=== PATIENT | male | born 1970 ===

== ENCOUNTER 2017-05-21 13:04 | Day surgery (SDC) | payer BC ==
--- NOTE | 2017-05-09 08:52 | HP ---
AMENDED REPORT NOW INCLUDES COSIGNER DESIGNATION - ESIGNED BEFORE ADJUSTMENT ADMISSION HISTORY AND PHYSICAL: DATE OF SURGERY/ADMISSION: 05/21/17 ATTENDING PHYSICIAN: Franco Rubio MD * (DICTATED BY JORGE SEPULVEDA ) CHIEF COMPLAINT: Symptomatic cholelithiasis. HISTORY OF PRESENT ILLNESS: Mr. Rocha is an pleasant 47-year-old gentleman who is well known to our practice from prior gastric bypass surgery back in 2008. The patient has done extremely well since his bariatric surgery and lost almost 100 pounds up-to-date. He has been staying active and eating healthy overall. He was seen by his primary care physician earlier this year and was found on a routine blood work to have elevated liver enzymes. The patient himself denies any symptoms related to gallbladder disease. He denied any abdominal pain, nausea, vomiting, changes in the bowel habits or in the color of stool or urine. The patient subsequently was sent for a right upper quadrant ultrasound that revealed evidence of cholelithiasis for which he was referred back to Dr. Rubio to discuss gallbladder surgery. Given the fact that the patient had a Jillian-en-Y gastric bypass 8 years ago and with new findings of cholelithiasis, he was concerned about having any issues with gallstone pancreatitis or any future problems with gallstones given his recent bariatric surgery for which he was found to be a good candidate for gallbladder surgery. The patient was seen by Dr. Rubio earlier this month to discuss surgery. At his office visit today, he continued to do well and denies any significant abdominal pain, nausea, vomiting or any other associated symptoms since his last office visit. He has maintained his weight loss with an average weight this time of 235 pounds and he has been maintaining a low carb, high protein diet as well. PAST MEDICAL HISTORY: Significant for sleep apnea for which the patient had used CPAP in the past, but has not been using it since he lost his weight. He also had history of anxiety, depression, thyroid disease, low testosterone and remote history of substance abuse. PAST SURGICAL HISTORY: Significant for adenoid removal back in 1977 due to polyps but tonsils are still intact. He also has a history of laparoscopic Jillian -en-Y gastric bypass back in June [address] Rubio. CURRENT MEDICATIONS: His medications at home include: 1. Calcarb 600/D mg/units 1 tablet daily. 2. Cyanocobalamin 1000 mcg 1 capsule daily by mouth. 3. Multivitamin 1 tablet daily. 4. Paxil 10 mg once a day. 5. Testosterone 200 mg/mL once daily. 6. Vitamin D3 one by mouth as needed. ALLERGIES: He has no known drug allergies. FAMILY HISTORY: Significant for heart disease and hypertension, but denies any family history of gallbladder disease or colorectal malignancies. 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 He is a nonsmoker who denies alcohol intake. REVIEW OF SYSTEMS: See HPI, otherwise negative. He denies any headache, dizziness, night sweats, or recent weight loss. No chest pain, cough, shortness of breath, sore throat, or palpitation. No fever, chills, nausea, vomiting, or recent changes in the bowel habits. He denies any abdominal pain, flank pain, dysuria, hematuria, or urinary frequency. PHYSICAL EXAMINATION GENERAL: He is an extremely pleasant, well-nourished and well-developed middle - aged gentleman, appears healthy and in no acute distress or discomfort at the time of his visit. VITAL SIGNS: His vitals today revealed blood pressure of 126/78, pulse of 84, respirations of 18, temperature of 98.3. He weighs 266 pounds on 6 feet 3 inches frame with a BMI of 33. HEENT: Sclerae anicteric. PERRLA. EOMs intact. Oropharynx is pink, moist with no exudate. NECK: Supple. Trachea midline. No cervical adenopathy, thyromegaly, or JVD. LUNGS: Clear to auscultation bilaterally. HEART: Regular rate and rhythm. Normal S1 and S2 without rubs, murmurs, or gallops. BACK: With normal curvature. No CVA tenderness. ABDOMEN: Soft, nontender, and nondistended. No hernias, masses, or hepatosplenomegaly. Incisions from prior surgery are barely seen and well healed. Stone sign was negative. EXTREMITIES: Without cyanosis, clubbing, or edema. NEUROLOGIC: Grossly intact. RECTAL: Deferred at this time. IMPRESSION: A 47-year-old gentleman with known history of cholelithiasis and recent laboratory workup showing elevated liver enzymes who underwent a laparoscopic Jillian-en-Y gastric bypass back in 2008. PLAN: Once again, we discussed with the patient proceeding with surgery given his recent finding of cholelithiasis and the fact that he had a Jillian-en-Y bypass surgery back in 2008. We discussed with him the potential risk of not proceeding with surgery at this time with the possibility of gallstone pancreatitis or worsening jaundice symptoms if it happens for him to pass any of his gallstones through the common bile duct. The rationale, indications, risks, and benefits of surgery were discussed with him today. Risks include but not limited to infection, bleeding, or injury to adjacent structures. He seems to understand and wishes to proceed with surgery as outlined. He is scheduled for a laparoscopic cholecystectomy by Dr. Rubio on 05/21/17 and we will follow him up accordingly. JORGE SEPULVEDA [id number]/[facility] #: [id number] MTDDary
[~2017-05-21 13:04] MED LIST: Buffered Lidocaine 0.9% SYRIN* 5 ML/SYR SYRINGE INTRADERM ONE; Buffered Lidocaine 0.9% SYRIN* 5 ML/SYR SYRINGE ONE; ceFAZolin 1 GM ADVAN(*) 1 GM ADDV.VIAL IVPB ONE
[2017-05-21] MEDS ORDERED: Bupivacaine 0.5% W/EPI SDV* 30 ML VIAL ONE (15:32)
[2017-05-21] MEDS ORDERED: Midazolam* 1 MG/ML 5 ML VIAL (5 MG) ONE (15:55)
[2017-05-21] MEDS ORDERED: Propofol* 10 MG/ML 20 ML BTL IV PUSH ONE (16:01)
[2017-05-21] MEDS ORDERED: fentaNYL* 50 MCG/ML 2 ML VIAL (100 MCG VIAL) ONE ×3 (16:02→18:01)
[2017-05-21] MEDS ORDERED: Atracurium* 10 MG/ML 10 ML VIAL ONE (16:02)
[2017-05-21] MEDS ORDERED: Succinylcholine* 20 MG/ML 10 ML VIAL ONE (16:28)
[2017-05-21] MEDS ORDERED: Atropine 1MG/ML INJ* 1 ML VIAL ONE (16:33)
[2017-05-21] MEDS ORDERED: HYDROmorphone* 1 MG/ML 1 ML SYR IV PRN (16:47)
[2017-05-21] MEDS ORDERED: oxyCODONE TAB* 5 MG TAB PO PRN (16:47)
[2017-05-21] MEDS ORDERED: DiMENhydriNATE IV* 50 MG/ML VIAL IV PUSH PRN (16:47)
[2017-05-21] MEDS ORDERED: Ondansetron INJ* 2 MG/ML VIAL IV PRN (16:47)
[2017-05-21] MEDS ORDERED: HYDROcodone/ACETAMIN 5-325 MG* 1 TAB PO PRN (16:47)
[2017-05-21] MEDS ORDERED: Neostigmine Methylsulfate* 2 MG/2 ML SYRINGE ONE (17:13)
[2017-05-21] MEDS ORDERED: Glycopyrrolate IV* 0.2 MG/ML 1 ML VIAL ONE (17:13)
[2017-05-21] MEDS ORDERED: Ketorolac INJ* 30 MG/ML 1 ML VIAL ONE (17:19)
[2017-05-21] MEDS ORDERED: oxyCODONE/Acetamin 5/325 MG* TAB PO PRN (17:33)
[2017-05-21] MEDS ORDERED: HYDROcodone/ACETAMIN 5-325 MG* 1 TAB ONE (18:01)
[2017-05-21] MEDS: fentaNYL* 50 MCG/ML 2 ML VIAL (100 MCG VIAL) IV PRN ×2 (18:03→18:12)
[2017-05-21 18:32] VITALS: BP 136/84
--- NOTE | 2017-05-23 02:57 | OP ---
CC: CHRIS Alvarez, [place], [place] * DATE OF OPERATION: 05/21/17 - [facility] DATE OF : 70 SURGEON: Franco Rubio MD HOSPICE CARE CONSULTANT: JORGE Patton ANESTHESIOLOGIST: Edvin Mcgregor MD ANESTHESIA: General endotracheal. PRE-OP DIAGNOSIS: Calculus in gallbladder. POST-OP DIAGNOSIS: Calculus in gallbladder. OPERATIVE PROCEDURE: Laparoscopic cholecystectomy. ESTIMATED BLOOD LOSS: Minimal. IV FLUIDS: Crystalloids. SPECIMEN: Gallbladder contents. DRAINS: None. COMPLICATIONS: None. COUNTS: The instrument, needle, and sponge counts were correct. DESCRIPTION OF PROCEDURE: The patient was brought to the operating room and placed on the table supine. Sequential compression devices were placed on both lower extremities. General anesthesia was administered. The abdomen was prepped and draped in the usual sterile fashion. Time-out was performed. Local anesthetic was infiltrated into the skin and soft tissue prior to making each incision. Entry into the abdomen was through a transumbilical vertical incision using an open technique and a 5-mm optical trocar. The peritoneal cavity was accessed and insufflated with carbon dioxide to pressure of 15 mmHg. Under direct visualization, two 5-mm trocars were placed in the right upper quadrant and a 11-mm trocar was placed in subxiphoid position. The inspection of the right upper quadrant revealed a normal-appearing liver. The gallbladder did not appear to be acutely inflamed, but there was some evidence of chronic inflammation. The fundus of the gallbladder was grasped and retracted cephalad. The infundibulum was identified. The peritoneum investing the gallbladder was incised sharply, dissected free along the medial and lateral aspects of the gallbladder, tried to identify the infundibulocystic duct junction. The cystic artery was identified and dissected out and after obtaining a critical view, the cystic duct and cystic artery were each clipped and divided. The gallbladder was grasped at the cystic duct stump and retracted cephalad. The gallbladder was freed from the attachments to the liver using the cautery and once the gallbladder was freed, it was placed to an endoscopic retrieval bag and retrieved through the subxiphoid site. Inspection revealed clips to be intact, hemostasis was excellent. Due to the patient's history of prior gastric bypass, it was decided to inspect the anatomy. The left lobe of the liver was elevated. The gastrojejunal anastomosis was inspected and the jejunal Jillian limb was run distally. At the point of the retroalimentary space, inspection revealed that there was no defect. There was good adherence of the peritoneum to the transverse colon, mesentery of peritoneum. The inspection continued distally and the jejunojejunostomy was inspected, had the normal appearance, and there was no defect at the mesenteric site there. The small bowel otherwise appeared normal and no gross abnormalities were noted in the colon. At this point, the operation was concluded. The ports removed under direct visualization. Carbon dioxide was released. The skin incisions were closed with 4- 0 Monocryl in subcuticular fashion. The Steri-Strips were applied. The patient tolerated the procedure well, was extubated, and transferred to recovery room in a stable condition. [id number]/[facility] #: [id number] MTDD
== END 2017-05-21 18:53 | disposition home or self-care (01) ==
LOC: OR 13:04
PROVIDERS: ATTEND Surgery
DX: K80.10 Calculus of gallbladder with chronic cholecystitis without obstruction (principal); Z98.84 Bariatric surgery status; G47.30 Sleep apnea, unspecified; F41.9 Anxiety disorder, unspecified; F32.9 Major depressive disorder, single episode, unspecified; E29.1 Testicular hypofunction
CPT/HCPCS: 88304; J0330; J0461; J0690; J1885; J2250; J2704; J3010